=== PATIENT | female | born 1990 | race Caucasian/White ===

== ENCOUNTER 2018-10-25 17:33 | Emergency (ER) | payer MEDICAID ==
[~2018-10-25] VITALS: Ht 152.4 cm; Wt 156.7 kg
[~2018-10-25 17:33] MED LIST: MOTRIN
[2018-10-25 17:40] VITALS: BP 142/67
--- NOTE | 2018-10-25 17:44 | NUR ---
PT TO ER BED 11
[2018-10-25] MEDS ORDERED: KETOROLAC 30 MG/ML VIAL IM ONE (18:35)
[2018-10-25 19:03] VITALS: BP 140/58
== END 2018-10-25 19:03 | disposition home or self-care (01) ==
LOC: MED 17:33
DX: S16.1XXA Strain of muscle, fascia and tendon at neck level, initial encounter (principal); G44.209 Tension-type headache, unspecified, not intractable; L83 Acanthosis nigricans; X58.XXXA Exposure to other specified factors, initial encounter; Y93.89 Activity, other specified; Y92.89 Other specified places as the place of occurrence of the external cause; Y99.8 Other external cause status
CPT/HCPCS: 81025; 96372; 99283; J1885

== ENCOUNTER 2021-07-26 21:37 | Emergency (ER) | payer MEDICAID ==
[~2021-07-26] VITALS: Ht 152.4 cm; Wt 163.3 kg
[2021-07-26 21:38] VITALS: BP 106/50
[2021-07-26] MEDS ORDERED: LORazepam 1 MG TAB PO ONE (22:20)
[2021-07-26] MEDS ORDERED: ATA25 PO (22:32)
[2021-07-26] MEDS ORDERED: ONDA8TAB87 PO (22:32)
[2021-07-26 22:39] VITALS: BP 106/50
== END 2021-07-26 22:39 | disposition home or self-care (01) ==
LOC: MED 21:37
DX: F41.9 Anxiety disorder, unspecified (principal); R42 Dizziness and giddiness; Z98.890 Other specified postprocedural states
CPT/HCPCS: 99283

== ENCOUNTER 2022-06-15 20:57 | Emergency (ER) | payer MEDICAID ==
[~2022-06-15] VITALS: Ht 152.4 cm; Wt 164.2 kg
[~2022-06-15 20:57] MED LIST changes: +ATA25 PO; -MOTRIN; +ONDA8TAB87 PO
--- NOTE | 2022-06-15 22:15 | NUR ---
Dr. Irwin examining patient.
[2022-06-15 22:17] VITALS: BP 174/105
[2022-06-15 23:03] LABS: BASOPHILS % (AUTO) 0.4 % (0.0-2.0); EOSINOPHILS % (AUTO) 0.4 % (0.0-4.0); HEMATOCRIT 40.9 % (36-48); HEMOGLOBIN 13.3 g/dL (12.0-16.0); LYMPHOCYTES # (AUTO) 2.4 K/uL (2.5-16.5); LYMPHOCYTES % (AUTO) 19.3 % (20.5-51.1); MEAN CORPUSCULAR HEMOGLOBIN 26 pg (27-31); MEAN CORPUSCULAR HGB CONC 33 g/dL (33-37); MEAN CORPUSCULAR VOLUME 79.5 fL (80-94); MONOCYTES # (AUTO) 0.6 K/uL (0.8-1.0); MONOCYTES % (AUTO) 4.7 % (1.7-9.3); NEUTROPHILS # (AUTO) 9.2 K/uL (1.8-7.7); NEUTROPHILS % (AUTO) 75.2 % (42.2-75.2); PLATELET COUNT (AUTO) 309 K/uL (140-450); RED BLOOD CELL COUNT(AUTO) 5.14 MIL/uL (4.20-5.40); RED CELL DISTRIBUTION WIDTH 15.5 % (11.6-13.7); WHITE BLOOD COUNT (AUTO) 12.3 K/uL (4.8-10.8)
[2022-06-15 23:34] LABS: ANION GAP 11.1 (8-16); CARBON DIOXIDE 28.7 mmol/L (21-32); POTASSIUM 3.8 mmol/L (3.5-5.1)
--- NOTE | 2022-06-15 23:34 | NUR ---
PT RETURNED FROM RADIOLOGY TO ER BED 3
[2022-06-15 23:35] LABS: ALBUMIN 4.2 g/dL (3.4-5.0); CREATININE 0.9 mg/dL (0.6-1.3); TOTAL BILIRUBIN 0.3 mg/dL (0.0-1.0)
[2022-06-16] MEDS ORDERED: KETOROLAC 30 MG/ML VIAL ONE (01:03)
[2022-06-16] MEDS ORDERED: KETOROLAC 30 MG/ML VIAL IVP ONE (01:10)
[2022-06-16] MEDS ORDERED: NAPR-54 PO (01:14)
[2022-06-16 01:20] VITALS: BP 136/65
--- NOTE | 2022-06-16 01:21 | NUR ---
Patient discharged with v/s stable. Written and verbal after care instructions given and explained by DR MOROCHO Patient alert, oriented and verbalized understanding of instructions. Ambulatory with steady gait. All questions addressed prior to discharge. ID band removed. Patient advised to follow up with PMD. Rx of NAPROXEN given. Patient educated on indication of medication including possible reaction and side effects. Opportunity to ask questions provided and answered.
== END 2022-06-16 01:21 | disposition home or self-care (01) ==
LOC: MED 20:57
DX: R07.89 Other chest pain (principal); Z79.899 Other long term (current) drug therapy
CPT/HCPCS: 36415; 71045; 71275; 80053; 81025; 85025; 85379; 93005; 93970; 96374; 99285; J1885; Q0092; Q9967